=== PATIENT | female | born 1980 | race Caucasian/White ===

== ENCOUNTER 2023-08-18 16:18 | Emergency (ER) | payer BC, SELFPAY ==
[2023-08-18] VITALS (11 sets, daily range): BP systolic 130; BP diastolic 85; PULSE 98–118; RESP 14–134; TEMP 37.7; O2SAT 96; BMI 45.4
--- NOTE | 2023-08-18 16:41 | ECG_ITS ---
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
--- NOTE | 2023-08-18 16:42 | ED.GENADUL1 ---
HPI - General Adult General Chief complaint: Dizziness Stated complaint: DIZZINESS SHORTNESS OF BREATH Time Seen by Provider: 08/18/23 16:19 Source: patient Mode of arrival: Wheelchair Limitations: no limitations History of Present Illness HPI narrative: Patient is in town from [place] visiting her daughter, who just gave on 08/15/23. The patient has asthma, CHF, HTN and high cholesterol. She denied prior cardiac stenting or cardiac catheterization but she has a loop recorder. She complains of generalized weakness and fatigue, sore throat, cough, ear pain and congestion. She told me that she had nausea and diarrhea. She is not eating because of the nausea. She also told me that she thought she was going to pass out a few days ago. Related Data Allergies Allergy/AdvReac Type Severity Reaction Status Date / Time sulfamethoxazole Allergy Unknown Verified 08/18/23 16:24 [From Bactrim] trimethoprim [From Bactrim] Allergy Unknown Verified 08/18/23 16:24 [facility] PFS Social History Smoking status: Never smoker Exam Narrative Exam Narrative: Nurses notes and vital signs reviewed and patient is not hypoxic. afebrile General: Well-appearing and in no apparent distress. Skin: Warm, dry, no pallor noted. No rash. Head: Normocephalic, atraumatic. Neck: Supple, non-tender. No meningismus. No cervical lymphadenopathy. Eye: Pupils are equal, round and EOMI. No scleral icterus. Ears, Nose, Mouth, and Throat: TM are clear, no posterior oropharynx erythema or nasal mucosal hypertrophy, uvula is mid-line Oral mucosa is moist Cardiovascular: Tachycardia. Respiratory: No accessory muscle use or respiratory distress. Lungs are clear to auscultation, no wheezing, rales or rhonchi Musculoskeletal: normal ROM, no calf or popliteal tenderness, no lower extremity edema/swelling GI: Abdomen is soft, non-distended. Normal bowel sounds. No tenderness to palpation. No rebound, guarding, or rigidity noted. Neurological: A&O x4. No cranial nerve dysfunction observed. No truncal ataxia. Moves all extremities. Sensation intact. Psychiatric: Cooperative and interactive. Normal mood and affect. Constitutional Vital Signs, click to edit/add: Last Vital Signs Temp 99.8 F 08/18/23 16:25 Pulse 101 H 08/18/23 17:20 Resp 15 08/18/23 17:20 BP 130/85 08/18/23 16:25 Pulse Ox 96 08/18/23 16:25 O2 Del Method Room Air 08/18/23 16:25 Course Vital Signs Vital signs: Vital Signs Temperature 99.8 F 08/18/23 16:25 Pulse Rate 118 H 08/18/23 16:25 Respiratory Rate 18 08/18/23 16:25 Blood Pressure 130/85 08/18/23 16:25 Pulse Oximetry 96 08/18/23 16:25 Oxygen Delivery Method Room Air 08/18/23 16:25 Temperature 99.8 F 08/18/23 16:25 Pulse Rate 101 H 08/18/23 17:20 Respiratory Rate 15 08/18/23 17:20 Blood Pressure 130/85 08/18/23 16:25 Pulse Oximetry 96 08/18/23 16:25 Oxygen Delivery Method Room Air 08/18/23 16:25 Medical Decision Making MDM Narrative Medical decision making narrative: Patient was placed on joint filler and EKG obtained. Blood drawn and sent for evaluation. CXR obtained. Swabs for Covid and Influenza also obtained. Normal CBC. CMP is notable for a slightly elevated creatinine at 2.12, elevated AST at 63, elevated ALT at 62, slightly elevated protein. I do not have the patient's baseline values for comparison. Chest x-ray did not show infiltrate or consolidation. Her loop recorder is what the radiologist saw and could not initially identify on his reading. She tested positive for influenza. She was informed of results, diagnosis of influenza was discussed. She is outside the window for Tamiflu. Patient advised to rest, stay at home, practice social distancing, take Motrin and Tylenol for pain and fever if not allergic, stay well hydrated with Gatorade or similar drinks if vomiting or eat as tolerated if not and take any meds as prescribed. Reviewed reasons to return including rapid increase in respiratory rate, shortness of breath, confusion, inability to keep down sips of swallowed liquids for more than 24 hours. Asked patient to encourage any ill contacts to stay home and practice similar advice. Lab Data Lab results reviewed: Yes I reviewed the patient's lab results Labs: Lab Results 08/18/23 08/18/23 Range/Units 16:35 17:07 WBC 9.4 (4.0-11.0) 10^3/uL RBC 4.52 (4.20-5.40) 10^6/uL Hgb 13.9 (12.0-16.0) g/dL Hct 42.4 (36.0-48.0) % MCV 93.8 (81.0-99.0) fL MCH 30.8 (26.7-34.0) pg MCHC 32.8 (29.9-35.2) g/dL RDW 13.5 (11.0-15.0) % Plt Count 237 (150-450) 10^3/uL MPV 10.3 (9.5-13.5) fL Neut % (Auto) 75.4 H (43.0-75.0) % Lymph % (Auto) 16.1 L (20.5-60.0) % Kern % (Auto) 7.6 (1.7-12.0) % Eos % (Auto) 0.1 L (0.9-7.0) % Baso % (Auto) 0.3 (0.2-2.0) % Neut # (Auto) 7.0 H (1.4-6.5) 10^3/uL Lymph # (Auto) 1.5 (1.2-3.8) 10^3/uL Kern # (Auto) 0.7 (0.3-0.8) 10^3/uL Eos # (Auto) 0.0 (0.0-0.7) 10^3/uL Baso # (Auto) 0.0 (0.0-0.1) 10^3/uL Abs Immat Gran (auto) 0.05 H (0.00-0.03) 10^3/uL Imm/Tot Granulo (auto) 0.5 (0.0-0.5) % Sodium 134 L (136-145) mmol/L Potassium 3.0 L (3.5-5.1) mmol/L Chloride 96 L (98-107) mmol/L Carbon Dioxide 24.0 (21.0-32.0) mmol/L Anion Gap 17.0 BUN 12.0 (7.0-18.0) mg/dL Creatinine 2.12 H (0.55-1.02) mg/dL Est GFR ( Amer) 31 L (>=60) Est GFR (Non-Af Amer) 25 L (>=60) BUN/Creatinine Ratio 5.7 Glucose 135 H (74-106) mg/dL Calcium 8.7 (8.5-10.1) mg/dL Total Bilirubin 0.7 (0.2-1.0) mg/dL AST 63 H (15-37) U/L ALT 62 H (14-59) U/L Alkaline Phosphatase 96 (46-116) U/L Troponin I High Sens 22.9 (4.0-51.3) pg/mL NT-Pro-B Natriuret Pep 32.0 (<=450.0) pg/mL Total Protein 8.3 H (6.4-8.2) g/dL Albumin 3.0 L (3.4-5.0) g/dL Globulin 5.3 g/dL Albumin/Globulin Ratio 0.6 Influenza Type A Ag Positive A Influenza Type B Ag Negative SARS-CoV-2 Ag (CV2AG) Negative (NEGATIVE) Imaging Data Chest x-ray: Radiologist's impression: ITS Impressions Chest X-Ray 08/18/23 17:22 IMPRESSION: No acute consolidation. Elongated foreign body overlying the superior mediastinum to the right. Question external to the patient versus implanted device. Correlate clinically for any possibility of aspirated foreign body. Electronically authenticated by: ARNEL FOX Date: 08/18/2023 18:00 ECG Data Attestation: I personally reviewed and interpreted this ECG as follows: Interpretation: EKG interpretation: Emergency Department physician interpretation. Sinus tachycardia at 110bpm. Normal axis, normal intervals and no ST segment elevation or depression. Discharge Plan Discharge Chief Complaint: Dizziness Clinical Impression: Influenza Patient Disposition: Home, Self-Care Time of Disposition Decision: 18:19 Instructions: Influenza (ED) Stand Alone Forms: Portal Instructions Referrals: Physician,Non-Staff, MD [Primary Care Provider] - 1 week
[2023-08-18 17:17] LABS: Basophils Percent Auto 0.3 % (0.2-2.0); Eosinophils Percent Auto 0.1 % (0.9-7.0); Hematocrit 42.4 % (36.0-48.0); Hemoglobin 13.9 g/dL (12.0-16.0); Immature Granulocytes Abs Auto 0.05 10^3/uL (0.00-0.03); Immature Granulocytes Pct Auto 0.5 % (0.0-0.5); Lymphocytes Absolute Auto 1.5 10^3/uL (1.2-3.8); Lymphocytes Percent Auto 16.1 % (20.5-60.0); Mean Corpuscular HGB Conc 32.8 g/dL (29.9-35.2); Mean Corpuscular Hemoglobin 30.8 pg (26.7-34.0); Mean Corpuscular Volume 93.8 fL (81.0-99.0); Mean Platelet Volume 10.3 fL (9.5-13.5); Monocytes Absolute Auto 0.7 10^3/uL (0.3-0.8); Monocytes Percent Auto 7.6 % (1.7-12.0); Neutrophils Percent Auto 75.4 % (43.0-75.0); Platelet Count 237 10^3/uL (150-450); Red Blood Count 4.52 10^6/uL (4.20-5.40); Red Cell Distribution Width 13.5 % (11.0-15.0); White Blood Count 9.4 10^3/uL (4.0-11.0)
[2023-08-18] MEDS: 0.9 % SODIUM CHLORIDE 500 ML 250 ML IV (17:19)
[2023-08-18] MEDS: ONDANSETRON PF 4 MG/2 ML VIAL IV (17:19)
--- NOTE | 2023-08-18 17:22 | XR_ITS ---
The [address] [address] Patient Name: FABIO FELIX MRN: [id number] date: 1980 Sex: F Assigned Patient Location: ED.MAIN Current Patient Location: ED.MAIN Accession/Order Number: [id number] Exam Date: 08/18/2023 17:15 Report Date: 08/18/2023 18:00 At the request of: MATTHEW URBINA Procedure: XR chest 1V EXAM: XR chest 1V TECHNIQUE: Single AP view chest HISTORY: cough COMPARISON: None. FINDINGS: The heart and mediastinum are unremarkable. The lung dave are clear of any acute infiltrate, effusion or mass. No acute bony abnormality. Apparent implanted electronic cardiac device overlying the superior mediastinum. XR/XR chest 1V IMPRESSION: No acute consolidation. Elongated foreign body overlying the superior mediastinum to the right. Question external to the patient versus implanted device. Correlate clinically for any possibility of aspirated foreign body. Electronically authenticated by: ARNEL FOX Date: 08/18/2023 18:00
[2023-08-18 17:34] LABS: Alanine Aminotransferase 62 U/L (14-59); Albumin Globulin Ratio 0.6; Alkaline Phosphatase 96 U/L (46-116); Aspartate Amino Transferase 63 U/L (15-37); BUN Creatinine Ratio 5.7; Bilirubin Total 0.7 mg/dL (0.2-1.0); Calcium 8.7 mg/dL (8.5-10.1); Chloride 96 mmol/L (98-107); Estimated GFR (African America 31 (>=60); Estimated GFR (Non-African Ame 25 (>=60); Globulin 5.3 g/dL; Glucose 135 mg/dL (74-106); Sodium 134 mmol/L (136-145); Total Protein 8.3 g/dL (6.4-8.2)
[2023-08-18 17:40] LABS: Troponin I High Sensitivity 22.9 pg/mL (4.0-51.3)
[2023-08-18 17:43] LABS: Influenza Virus A Antigen Positive; Influenza Virus B Antigen Negative; Internal Control Within Normal Limits; SARS-CoV-2 Ag NEGATIVE (NEGATIVE)
== END 2023-08-18 18:32 | disposition home or self-care (01) ==
PROVIDERS: Emergency Provider Emergency Medicine
DX: J10.1 Influenza due to other identified influenza virus with other respiratory manifestations (principal); I11.0 Hypertensive heart disease with heart failure; I50.9 Heart failure, unspecified; J45.909 Unspecified asthma, uncomplicated; Z20.822 Contact with and (suspected) exposure to COVID-19; Z95.818 Presence of other cardiac implants and grafts
CPT/HCPCS: 36415; 71045; 80053; 83880; 84484; 85025; 87804; 87811; 93005; 96374; 99285; J2405